=== PATIENT | female | born 1985 | race Caucasian/White ===

== ENCOUNTER 2023-06-16 23:10 | Inpatient (IN) | payer OTHER, SELFPAY ==
[2023-06-16 23:16] VITALS: BP 164/107; PULSE 117; TEMP 37.2; O2SAT 100; BMI 22.8
[2023-06-16 23:45] LABS: Basophils % 0.5 %; Eosinophils # 0.1 10^3/uL (0.0-0.8); Eosinophils % 1.9 %; Hematocrit 44.2 % (36-47); Lymphocytes # 1.3 10^3/uL (0.8-4.8); Lymphocytes % 22.4 %; Mean Corpuscular HGB Conc 33.5 g/dL (30-55); Mean Corpuscular Hemoglobin 30.6 pg (27-33); Mean Corpuscular Volume 91.5 fl (85-98); Mean Platelet Volume 9.1 fL (7.4-10.4); Monocytes # 0.4 10^3/uL (0.2-0.9); Monocytes % 5.9 %; Neutrophils # 4.07 10^3/uL (1.8-7.7); Neutrophils % 69.1 %; Nucleated Red Blood Cells % 0 %; Platelet Count 286 10^3/cmm (157-399); Red Blood Count 4.83 10^6/uL (3.85-5.65); White Blood Count 5.89 10^3/uL (3.29-11.43)
[2023-06-16 23:53] LABS: Add Urine Microscopic? NO; Charge for UA Resulting for Rev
[2023-06-16 23:58] LABS: Bilirubin Urine Neg (Negative); Blood Urine Neg (Negative); Glucose Urine UA Norm (Normal); HCG Qualitative Urine. Negative (Negative); Ketones Urine Negative (Negative); Leukocyte Esterase Urine Negative (Negative); Nitrate Urine Negative (Negative); Protein Urine Neg (Negative); Specific Gravity, Urine 1.005 (1.005-1.030); Urine Appearance Clear (CLEAR); Urine Color Light yellow (Yellow); Urobilinogen Urine Neg (Negative); pH Urine 6 (5-7)
[2023-06-17 00:01] LABS: Alanine Aminotransferase 16 U/L (0-33); Albumin Level 4.7 g/dL (3.5-5.2); Alcohol Level 189 mg/dL (0-10); Alkaline Phosphatase 69 U/L (35-105); Anion Gap 17.6 (5-19); Aspartate Amino Transferase 22 U/L (0-32); Blood Urea Nitrogen 6 mg/dL (6-20); Calcium 9.3 mg/dL (8.5-10.5); Carbon Dioxide 23 mmol/L (22-29); Chloride 105 mmol/L (98-107); Globulin 3.2 g/dL (1.3-4.6); Glomerular Filtration Rate 92.7 mL/min (90-130); Glucose 96 mg/dL (65-115); Osmolality Calculated 291 mOsm/kg (285-295); Potassium 3.6 mmol/L (3.5-5.1); Sodium 142 mmol/L (136-145); Total Bilirubin 0.4 mg/dL (0.15-1.2); Total Protein 7.9 g/dL (6.6-8.7)
[2023-06-17 00:04] LABS: Amphetamines Screen Urine Negative (Negative); Barbiturates Screen Urine Negative (Negative); Benzodiazepines Screen Urine Negative (Negative); Cocaine Screen Urine Negative (Negative); Opiate Screen Urine Negative (Negative); PCP Screen Urine Negative (Negative); THC Screen Urine Positive (Negative)
[2023-06-17 00:04] LABS: Acetaminophen < 5.0 ug/mL (10-30); Salicylate < 0.3 mg/dL (3-10)
--- NOTE | 2023-06-17 00:13 | ED.C_ITS ---
HPI - Psych General: Chief Complaint: Psychiatric Symptoms Stated Complaint: MHE Time Seen by Provider: 06/16/23 23:24 Source: patient and police History of Present Illness: 38-year-old female brought in by law enforcement. They were called to the scene by the patient's family, because she had been making statements about harming himself by jumping off of a roof, evidently because of her family had not been nice to her today, which is her birthday. Prior alcohol consumption was endorsed. She states she has a history of depression, has never been admitted to the hospital for depression or mental illness. Her depression is untreated. She has no known other health problems MD complaint: other Onset (ago): hour(s) Duration: constant History of same: No Relieving factors: none Exacerbating factors: none Context: recent alcohol abuse Associated psychiatric symptoms: depression Associated symptoms: Deny auditory hallucinations or visual hallucinations Review of Systems Const: Denies: fever(s) ENMT: Denies: throat pain Card: Denies: chest pain Resp: Denies: dyspnea GI: Denies: abdominal pain, nausea or vomiting Psych: Denies: visual hallucinations or auditory hallucinations Physical Exam Const: COMMON NORMALS: no acute distress GENERAL APPEARANCE: cooperative; not ill appearing and not frail appearing HENMT: COMMON NORMALS: normocephalic, atraumatic and Normal external nose present HEAD & SCALP: normocephalic and atraumatic FACE & SINUS: normal facial exam and face symmetric NOSE: Normal external nose present Eye: COMMON NORMALS: Equal, round and reactive pupils present and EOMs intact bilaterally PUPIL: Yes Equal, round and reactive pupils present Neck/C-Spine: GENERAL: Yes trachea midline Chest: CHEST: Yes Symmetrical chest wall rise Resp: COMMON NORMALS: normal respiratory effort, No retractions, No use of accessory muscles and clear to auscultation bilaterally AUSCULTATION: clear to auscultation bilaterally Cardio: COMMON NORMALS: regular rate and regular rhythm RATE: regular rate RHYTHM: regular rhythm GI: COMMON NORMALS: Normal to inspection, nondistended, normoactive bowel sounds present Extremity: COMMON NORMALS: no pedal edema Neuro: SANDRA COMA SCALE: document GCS findings Sandra coma scale eye opening: Spontaneous Sandra coma scale verbal response: Orientated Sandra coma scale motor response: [place]bey commands [place] coma scale total score: 15 SENSORY EXAM: Yes extremities (intact) Psych: COMMON NORMALS: speech normal SPEECH: Yes normal speech Skin: COMMON NORMALS: no rashes or lesions noted GENERAL SKIN EXAM: no rashes or lesions noted Course Vital Signs: Vital signs: Vital Signs Temperature 99.0 F 06/16/23 23:16 Pulse Rate 117 H 06/16/23 23:16 Blood Pressure 164/107 06/16/23 23:16 Pulse Oximetry 100 06/16/23 23:16 Oxygen Delivery Me thod Room Air 06/16/23 23:16 MDM - Psych Medical Decision Making 38-year-old female presenting with mild alcohol intoxication, and making suicidal statements. She now denies suicidality, but endorses significant depression and hopelessness. She states that her family threatened to leave her if she did not get help. Laboratory is essentially normal, save an alcohol level of 189, and marijuana positive drug screen. Medically she is stable. I spoke with psychiatry. As she had made suicidal statements prior, we will sign 96-hour paperwork with the deputy's affidavit, although she is coming in willingly. She asks for something to help her sleep, nicotine patch, and ibuprofen for headache. Lab Data 06/16/23 23:35 06/16/23 23:35 Laboratory Results WBC 5.89 10^3/uL (3.29-11.43) 06/16/23 23:35 RBC 4.83 10^6/uL (3.85-5.65) 06/16/23 23:35 Hgb 14.80 g/dL (11.27-16.99) 06/16/23 23:35 Hct 44.2 % (36-47) 06/16/23 23:35 MCV 91.5 fl (85-98) 06/16/23 23:35 MCH 30.6 pg (27-33) 06/16/23 23:35 MCHC 33.5 g/dL (30-55) 06/16/23 23:35 RDW 11.0 % (12.1-15.1) L 06/16/23 23:35 Plt Count 286 10^3/cmm (157-399) 06/16/23 23:35 MPV 9.1 fL (7.4-10.4) 06/16/23 23:35 Neut % (Auto) 69.1 % 06/16/23 23:35 Lymph % (Auto) 22.4 % 06/16/23 23:35 [place] % (Auto) 5.9 % 06/16/23 23:35 Eos % (Auto) 1.9 % 06/16/23 23:35 Baso % (Auto) 0.5 % 06/16/23 23:35 Neut # (Auto) 4.07 10^3/uL (1.8-7.7) 06/16/23 23:35 Lymph # (Auto) 1.3 10^3/uL (0.8-4.8) 06/16/23 23:35 [place] # (Auto) 0.4 10^3/uL (0.2-0.9) 06/16/23 23:35 Eos # (Auto) 0.1 10^3/uL (0.0-0.8) 06/16/23 23:35 Baso # (Auto) 0.0 10^3/uL (0.0-0.1) 06/16/23 23:35 Nucleated RBC % (auto) 0 % 06/16/23 23:35 Nucleated RBCs # 0.0 /100WBC 06/16/23 23:35 Sodium 142 mmol/L (136-145) 06/16/23 23:35 Potassium 3.6 mmol/L (3.5-5.1) 06/16/23 23:35 Chloride 105 mmol/L (98-107) 06/16/23 23:35 Carbon Dioxide 23 mmol/L (22-29) 06/16/23 23:35 Anion Gap 17.6 (5-19) 06/16/23 23:35 BUN 6 mg/dL (6-20) 06/16/23 23:35 Creatinine 0.7 mg/dL (0.5-0.9) 06/16/23 23:35 GFR Calculation 92.7 mL/min (90-130) 06/16/23 23:35 Glucose 96 mg/dL (65-115) 06/16/23 23:35 Calculated Osmolality 291 mOsm/kg (285-295) 06/16/23 23:35 Calcium 9.3 mg/dL (8.5-10.5) 06/16/23 23:35 Total Bilirubin 0.4 mg/dL (0.15-1.2) 06/16/23 23:35 AST 22 U/L (0-32) 06/16/23 23:35 ALT 16 U/L (0-33) 06/16/23 23:35 Alkaline Phosphatase 69 U/L (35-105) 06/16/23 23:35 Total Protein 7.9 g/dL (6.6-8.7) 06/16/23 23:35 Albumin 4.7 g/dL (3.5-5.2) 06/16/23 23:35 Globulin 3.2 g/dL (1.3-4.6) 06/16/23 23:35 HCG, Qual Negative (Negative) 06/16/23 23:48 Urine Color Light yellow (Yellow) 06/16/23 23:48 Urine Appearance Clear (CLEAR) 06/16/23 23:48 Urine pH 6 (5-7) 06/16/23 23:48 Ur Specific [place] 1.005 (1.005-1.030) 06/16/23 23:48 Urine Protein Neg (Negative) 06/16/23 23:48 Urine Glucose (UA) Norm (Normal) 06/16/23 23:48 Urine Ketones Negative (Negative) 06/16/23 23:48 Urine Blood Neg (Negative) 06/16/23 23:48 Urine Nitrate Negative (Negative) 06/16/23 23:48 Urine Bilirubin Neg (Negative) 06/16/23 23:48 Urine Urobilinogen Neg mg/dL (Negative) 06/16/23 23:48 Ur Leukocyte Esterase Negative (Negative) 06/16/23 23:48 Salicylates < 0.3 mg/dL (3-10) L 06/16/23 23:35 Urine Opiates Screen Negative ng/mL (Negative) 06/16/23 23:48 Acetaminophen < 5.0 ug/mL (10-30) L 06/16/23 23:35 Ur Barbiturates Screen Negative ng/mL (Negative) 06/16/23 23:48 Ur Phencyclidine Scrn Negative ng/mL (Negative) 06/16/23 23:48 Ur Amphetamines Screen Negative ng/mL (Negative) 06/16/23 23:48 U Benzodiazepines Scrn Negative ng/mL (Negative) 06/16/23 23:48 Urine Cocaine Screen Negative ng/mL (Negative) 06/16/23 23:48 U Marijuana (THC) Screen Positive ng/mL (Negative) H 06/16/23 23:48 Ethyl Alcohol 189 mg/dL (0-10) H 06/16/23 23:35 Discharge Plan Discharge Patient Disposition: Admitted As Inpatient Clinical Impression: Depression with suicidal ideation Condition: Stable Coding Level of Care Code ED Game Tester for Jeanette Kemp
--- NOTE | 2023-06-17 01:00 | PC.NURSE ---
pt was upset when she heard another pt state 'you cant hold me here against my will'. this pt then states 'if i want to kill myself then thats my business'. this video game script writer tried to de-esclate pt and told her were were trying to help her and she refused to respond. pt in stable condition, aware and sitter is at bedside.
[2023-06-17 01:01] VITALS: RESP 17
--- NOTE | 2023-06-17 01:15 | PC.NURSE ---
Patient requesting nicotine gum or something because she smokes. Dr Saleh gave verbal for a patch. Order placed and offered to the patient. Pt refused and states, I said I want to gum those patches don't work . PT then threw her cup of ice water in floor.
[2023-06-17] MEDS: ibuprofen 600 mg Tablet PO (01:42)
[2023-06-17] MEDS: zolpidem 5 mg Tablet PO (01:42)
[2023-06-17] MEDS: nicotine 21 mg Patch 1 PATCH TRANSDERMA (01:42)
--- NOTE | 2023-06-17 02:38 | PC.NURSE ---
96hr hold placed and rights read to patient with provided copy by design supervisor, Marilee NAZARIO. Security in room at time.
[2023-06-17 05:33] VITALS: BP 160/110; PULSE 101; RESP 16; O2SAT 97
--- NOTE | 2023-06-17 05:37 | PC.NURSE ---
BP elevated to 160/110, did retake and still elevated. Dr notified and per verbal order dr albrecht can give Amlodipine 10mg po. rbvo
[2023-06-17] MEDS: amlodipine 10 mg Tablet PO (05:40)
[2023-06-17 09:52] VITALS: BP 165/106; PULSE 111; O2SAT 98
[2023-06-17] MEDS: hyDROXYzine 25 mg Capsule 50 MG PO (20:16)
[2023-06-17] MEDS: trazodone 50 mg Tablet PO (20:16)
[2023-06-17 21:04] VITALS: BP 162/88; PULSE 95; RESP 20; TEMP 36.9; O2SAT 98
--- NOTE | 2023-06-17 23:06 | PC.NURSE ---
Pt arrived to NPU w/security and RN at side. Pt was highly anxious, but was cooperative w/admission assessment.
[2023-06-18] MEDS: OLANZapine 5 mg ODT PO (03:26)
[2023-06-18 03:27] VITALS: BP 139/106; PULSE 103; RESP 22
--- NOTE | 2023-06-18 03:28 | PC.NURSE ---
Pt came to desk complaining of chest pain, VS p-103, r-22, BP-139/106 using a wrist cuff. Pt states she has dizziness at times at home. Pt given Zyprexa Zydis 5mg SL. Pt stated when she had this feeling before, she worried she was having a stroke. Pt voiced relief of chest pain shortly after medication was given, pt also given 16oz of ice water to sip on though out the rest of this night. Will continue to monitor pt.
[2023-06-18 06:00] VITALS: BP 144/92; PULSE 79; RESP 15; O2SAT 97
[2023-06-18] MEDS: nicotine 2 mg Gum BUCCAL ×4 (08:48→20:00)
--- NOTE | 2023-06-18 11:13 | ECG_ITS ---
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 Measurements Intervals [place] Rate: 105 P: 54 IN: 146 QRS: 45 QRSD: 74 T: 62 QT: 285 QTc: 378 Interpretive Statements SINUS TACHYCARDIA NONSPECIFIC T-WAVE ABNORMALITY ABNORMAL RHYTHM ECG No previous ECG available for comparison Electronically Signed On 06-19-2023 0:03:31 CDT by Lauren Amos M.D. [id number]
[2023-06-18] MEDS: LORazepam 2 mg Tablet PO ×2 (11:32→15:44)
[2023-06-18 14:00] VITALS: BP 131/99; PULSE 105; RESP 16; O2SAT 98
--- NOTE | 2023-06-18 15:49 | PC.NURSE ---
PRN MED PT GIVEN 2MG ATIVAN, PER CIWA SCORE OF 10, WILL CONTINUE TO MONITOR.
--- NOTE | 2023-06-18 17:03 | W.PM.NPUH&PS ---
Providers/Chief Complaint Admitting Physician: José Sloan MD Chief Complaint: MHE HPI NPU History of Present Illness Herbert Davidson is a 38 year old female who reports no previous inpatient psychiatric treatment who had been brought in by law enforcement after the patient had apparently locked herself up in a room that apparently had had a gun and it while making statements about wanting to jump off of a roof. The patient was admitted to the neuropsychiatric unit for further evaluation and treatment. She had reported that she had consumed 8 beers and states that she has no recollection about making a statement to hurt herself. She had stated that she had been consuming alcohol on a regular basis for the past several months although she had stated that she had tried to cut down. She reports that her family members had threatened to abandon her if she did not get some help. She had reported that she was extremely upset that her family had let her down by not even wishing her happy birthday on the day of admission. She had reported that she has been depressed since she was a child with general reports of feeling depressed more days than not. She reports having sleep continuity disruption and reports that she has been crying more frequently. She reports not feeling rested when awakening. She reports that she has been feeling more hopeless. She reports that she sometimes acts without thinking and admits to having overdosed on Tylenol several months ago without informing anyone of her actions. Patient does report feeling more tired and endorses a lack of motivation. She denied any history of sekou. She does report that she is an introvert and struggles with being around lots of people. She reports that she has struggles with speaking or being in front of large crowds. She reports that she often avoids being around other people as she reports being the center of attention. She reports that she chronically worries and states that she has been struggling to manage her worry for much of her life. She denies any psychotic symptoms. Inpatient psychiatric history: None Outpatient psychiatric history: None Allergies: No known drug allergies Surgeries: Ectopic Medical history: None reported Current medications: None Drug and alcohol history: She reports daily drinking for several years. She reports no history of drug or alcohol treatment. She had minimized any history of acute alcohol withdrawal symptoms in the past. She had endorsed occasional marijuana use and was positive for marijuana and positive for alcohol with a blood alcohol level of 189 on admission. Family psychiatric history: Alcohol abuse in the paternal side of the family. Social history: She reports that she was born in [place] and raised by her mother. She states that her parents had split up when she was 18 months old. She has 1 full sister. She had graduated from high school and had gone to college but was unable to complete her degree as she had hopes of working in the dental field. 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 She lives in [place], [place] with her and 6-year-old and 14-year-old children. She had graduated from [employer] and reported having few friends. She did not endorse any history of significant trauma during her childhood. She has no legal history or any history. Meds NPU Home Medications Medication Instructions Recorded Confirmed Last Taken Type No Known Home Medications 06/17/23 06/17/23 Unknown History Allergies Allergy/AdvReac Type Severity Reaction Status Date / Time No Known Allergies Allergy Verified 06/16/23 23:33 Mental Status Exam MSE Comments: Is a casually dressed white female who appeared her stated age with fleeting eye contact and normal gait. There was no evidence of any abnormal involuntary motor movements tics or tremors appreciated. There was evidence of moderate psychomotor retardation. She was initially guarded during the interview but appeared to be more forthcoming later. Her speech was normal in regards to rate rhythm and prosody. Her mood was described as depressed. Her affect was restricted in range and mood-congruent. She denied any suicidal ideation at this time and minimized any homicidal ideation. She had endorsed a sense of hopelessness. She was tearful throughout much of the interview. Her attention span appeared fair. Her recent and remote memory were grossly intact. She was alert and oriented to person place and time. red limited. There was no clear evidence of delusional thinking. Her thought process was linear logical and goal-directed. She did not appear to be responding to internal stimuli. Her insight is poor. Her judgment is poor. Her impulse control appea Vitals/I&O/Wt Last Vital Signs Temp 98.5 F 06/17/23 21:04 Pulse 105 H 06/18/23 14:00 Resp 16 06/18/23 14:00 BP 131/99 06/18/23 14:00 Pulse Ox 98 06/18/23 14:00 O2 Del Method Room Air 06/18/23 14:00 Weight last 48 hrs Weight 56.699 kg Data NPU 06/16/23 23:35 06/16/23 23:35 A&P Assessment and plan (1) Depression with suicidal ideation: (2) Major depressive disorder: (3) Generalized anxiety disorder: Plan 1. Encourage individual, group and milieu therapy. ?2.Recommend sober living treatment at the highest level of care to which the patient is willing to commit. 3.Continue q-15 minute checks for safety.? 4. CIWA protocol 5. Initiate zoloft 25mg in am to target depression and anxiety. Involuntary Hold Information 96 Hour Hold: 96 Hour Involuntary Admission: Yes 96 Hour Hold Ending Date: 06/21/23 96 Hour Hold Ending Time: 01:58 Attestations NPU Medical Necessity Statement*: Inpatient hospitalization is medically necessary and deemed to be the clinically appropriate intervention at this time. We will monitor and initiate medications while making changes as indicated. Patient will be in the hospital for over 2 midnights. The patient's likely length of stay is 3 to 5 days. Coding Level of Care Code Acute Code for Chg Fwd Diagnoses Depression with suicidal ideation F32.A; R45.851 Major depressive disorder F32.9 Generalized anxiety disorder F41.1
[2023-06-18] MEDS: sertraline 50 mg Tablet 25 MG PO (17:10)
[2023-06-18] MEDS: hyDROXYzine 25 mg Capsule 50 MG PO (19:58)
[2023-06-18] MEDS: trazodone 50 mg Tablet PO (19:58)
[2023-06-18 22:00] VITALS: RESP 16; TEMP 36.1
[2023-06-19] MEDS: OLANZapine 5 mg ODT PO (01:55)
[2023-06-19 06:00] VITALS: BP 120/64; PULSE 87; RESP 16; TEMP 36.6; O2SAT 97
[2023-06-19] MEDS: thiamine 100 mg Tablet PO (08:50)
[2023-06-19] MEDS: folic acid 1 mg Tablet PO (08:50)
[2023-06-19] MEDS: sertraline 50 mg Tablet 25 MG PO (08:50)
[2023-06-19] MEDS: nicotine 2 mg Gum BUCCAL ×6 (08:54→20:33)
[2023-06-19] MEDS: multivitamin therapeutic Tablet 1 TAB PO (09:58)
[2023-06-19] MEDS: hyDROXYzine 25 mg Capsule 50 MG PO ×2 (11:27→19:24)
[2023-06-19 14:00] VITALS: BP 136/91; PULSE 105; RESP 16; TEMP 36.4; O2SAT 97
--- NOTE | 2023-06-19 15:06 | W.PM.NPUPNS ---
Subjective NPU Subjective: Patient is a 38-year-old white female admitted with major depressive disorder ,generalized anxiety disorder and alcohol abuse with suicidal ideation. Patient had continued to report depressed mood. She had reported struggling with discussing her problems with anyone else. She had reported continued thoughts of being abandoned by her family. She had reported extreme anxiety in public places and reported feeling as if she was being placed as a center of attention when she was out in public. She had reported that her anxiety and depression have been present since childhood and had led to her increased problems with alcohol. She had reported no past history of alcohol withdrawal symptoms. She had reported anhedonia with some difficulties with falling asleep and staying asleep. The patient had continued to isolate herself on the milieu. Mental Status Exam MSE Comments: Is a casually dressed white female who appeared her stated age with fleeting eye contact and normal gait with clear ruddiness in complexion. There was no evidence of any abnormal involuntary motor movements tics or tremors appreciated. There was evidence of moderate psychomotor retardation. She was less guarded on interview today. Her speech was normal in regards to rate rhythm and prosody. Her mood was described as depressed. Her affect was tearful and restricted in range. She denied any suicidal ideation at this time and minimized any homicidal ideation. She remained tearful throughout much of the interview. Her attention span appeared fair. Her recent and remote memory were grossly intact. She was alert and oriented to person, place and time. There was no clear evidence of delusional thinking. Her thought process was linear, logical and goal-directed. She did not appear to be responding to internal stimuli. Her insight is poor. Her judgment is poor. Her impulse control appea Vitals/I&O/Wt Last Vital Signs Temp 97.9 F 06/19/23 06:00 Pulse 87 06/19/23 06:00 Resp 16 06/19/23 06:00 BP 120/64 06/19/23 06:00 Pulse Ox 97 06/19/23 06:00 O2 Del Method Room Air 06/19/23 06:00 Data NPU 06/16/23 23:35 06/16/23 23:35 A&P Assessment and plan (1) Depression with suicidal ideation: (2) Major depressive disorder: (3) Generalized anxiety disorder: (4) Alcohol abuse: Plan 1. Encourage individual, group and milieu therapy. ?2.Recommend sober living treatment at the highest level of care to which the patient is willing to commit. 3.Continue q-15 minute checks for safety.? 4. CIWA protocol 5. increase Zoloft to 50mg in am to target depression and anxiety. Add naltrexone to target alcohol cravings. Involuntary Hold Information 96 Hour Hold: 96 Hour Involuntary Admission: Yes 96 Hour Hold Ending Date: 06/21/23 96 Hour Hold Ending Time: 01:58 Attestations NPU Medical Necessity Statement*: Inpatient hospitalization is medically necessary and deemed to be the clinically appropriate intervention at this time. We will monitor and initiate medications while making changes as indicated. \ The patient's likely length of stay is 3-4 days. Coding Level of Care Code Acute Code for Chg Fwd Diagnoses Depression with suicidal ideation F32.A; R45.851 Major depressive disorder F32.9 Generalized anxiety disorder F41.1 Alcohol abuse F10.10
[2023-06-19] MEDS: naltrexone hcl 50 mg Tablet PO (15:34)
--- NOTE | 2023-06-19 18:06 | ECG_ITS ---
[facility] Test Date: 2023-06-19 Pat Name: Herbert Davidson Department: Room: 128 Gender: Female Supervisor [employer]: : 1985 Requested By: José Sloan Order Number: [id number] Alisson MD: Tulio Kramer M.D. Measurements Intervals [place] Rate: 93 P: 56 CT: 154 QRS: 62 QRSD: 74 T: 65 QT: 362 QTc: 452 Interpretive Statements SINUS RHYTHM NONSPECIFIC T-WAVE ABNORMALITY Compared to ECG 06/18/2023 13:28:35 Sinus tachycardia no longer present T-wave abnormality still present Electronically Signed On 06-20-2023 6:48:46 CDT by Tulio Kramer M.D. [id number]
[2023-06-19 19:24] LABS: Troponin T (5th) Once 6 ng/L (0-10)
[2023-06-19 19:28] LABS: Alanine Aminotransferase 12 U/L (0-33); Albumin Level 4.1 g/dL (3.5-5.2); Alkaline Phosphatase 56 U/L (35-105); Anion Gap 16.8 (5-19); Aspartate Amino Transferase 17 U/L (0-32); Blood Urea Nitrogen 12 mg/dL (6-20); Calcium 9.3 mg/dL (8.5-10.5); Carbon Dioxide 25 mmol/L (22-29); Chloride 102 mmol/L (98-107); Globulin 2.9 g/dL (1.3-4.6); Glomerular Filtration Rate 92.7 mL/min (90-130); Glucose 127 mg/dL (65-115); Osmolality Calculated 291 mOsm/kg (285-295); Potassium 3.8 mmol/L (3.5-5.1); Sodium 140 mmol/L (136-145); Total Bilirubin 0.3 mg/dL (0.15-1.2)
[2023-06-19 20:03] VITALS: BP 145/101; PULSE 90; RESP 18; TEMP 36.8; O2SAT 97
[2023-06-19] MEDS: trazodone 50 mg Tablet PO (20:44)
[2023-06-20 06:00] VITALS: BP 131/86; PULSE 90; RESP 16; TEMP 36.9; O2SAT 97
[2023-06-20] MEDS: nicotine 2 mg Gum BUCCAL ×3 (06:53→12:38)
[2023-06-20] MEDS: thiamine 100 mg Tablet PO (09:17)
[2023-06-20] MEDS: folic acid 1 mg Tablet PO (09:17)
[2023-06-20] MEDS: multivitamin therapeutic Tablet 1 TAB PO (09:17)
[2023-06-20] MEDS: naltrexone hcl 50 mg Tablet PO (09:17)
[2023-06-20] MEDS: sertraline 50 mg Tablet PO (09:17)
[2023-06-20] MEDS: hyDROXYzine 25 mg Capsule 50 MG PO (12:37)
[2023-06-20 13:34] VITALS: BP 141/97; PULSE 87; RESP 16; TEMP 36.7; O2SAT 97
--- NOTE | 2023-06-20 14:18 | W.PM.NPUDCS ---
Diagnoses at Discharge Discharge Diagnosis (1) Depression with suicidal ideation: Status: Acute (2) Major depressive disorder: Status: Acute (3) Generalized anxiety disorder: Status: Acute (4) Alcohol abuse: Status: Acute Reason for Visit Reason for Visit: MHE Brief History: History of Present Illness Herbert Davidson is a 38 year old female who reports no previous inpatient psychiatric treatment who had been brought in by law enforcement after the patient had apparently locked herself up in a room that apparently had had a gun and it while making statements about wanting to jump off of a roof.? The patient was admitted to the neuropsychiatric unit for further evaluation and treatment.? She had reported that she had consumed 8 beers and states that she has no recollection about making a statement to hurt herself.? She had stated that she had been consuming alcohol on a regular basis for the past several months although she had stated that she had tried to cut down.? She reports that her family members had threatened to abandon her if she did not get some help.? She had reported that she was extremely upset that her family had let her down by not even wishing her happy birthday on the day of admission.? She had reported that she has been depressed since she was a child with general reports of feeling depressed more days than not.? She reports having sleep continuity disruption and reports that she has been crying more frequently.? She reports not feeling rested when awakening.? She reports that she has been feeling more hopeless.? She reports that she sometimes acts without thinking and admits to having overdosed on Tylenol several months ago without informing anyone of her actions.? Patient does report feeling more tired and endorses a lack of motivation.? She denied any history of sekou.? She does report that she is an introvert and struggles with being around lots of people.? She reports that she has struggles with speaking or being in front of large crowds.? She reports that she often avoids being around other people as she reports being the center of attention.? She reports that she chronically worries and states that she has been struggling to manage her worry for much of her life.? She denies any psychotic symptoms. Inpatient psychiatric history: None Outpatient psychiatric history: None Allergies: No known drug allergies Surgeries: Ectopic Medical history: None reported Current medications: None Drug and alcohol history: She reports daily drinking for several years.? She reports no history of drug or alcohol treatment.? She had minimized any history of acute alcohol withdrawal symptoms in the past.? She had endorsed occasional marijuana use and was positive for marijuana and positive for alcohol with a blood alcohol level of 189 on admission. Family psychiatric history: Alcohol abuse in the paternal side of the family. Social history: She reports that she was born in [place] and raised by her mother.? She states that her parents had split up when she was 18 months old.? She has 1 full sister.? She had graduated from high school and had gone to college but was unable to complete her degree as she had hopes of working in the dental field.? 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 She lives in [place], [place] with her and 6-year-old and 14-year-old children.? She had graduated from [employer] and reported having few friends.? She did not endorse any history of significant trauma during her childhood.? She has no legal history or any history. Hospital Course Hospital Course During the hospitalization, the patient had routine laboratory studies which were within normal limits except for a few outliers.? Additionally, there was a general medical evaluation which was also within normal limits and revealed no new acute processes.? At the time of discharge, lethality was denied and psychosis was resolving.? Mood and anxiety were well managed.? The patient endorsed a plan to avoid all drugs of abuse and follow up with the aftercare recommendations of the treatment team.? The patient was evaluated and deemed to be absent credible lethality and had achieved the maximum benefit from an inpatient hospitalization, and so was discharged.Zoloft was initiated and titrated to 100mg daily without any side effects. She reported desire to consider psychotherapy and medication management to target her depression and anxiety. Involuntary Hold Information 96 Hour Hold: 96 Hour Involuntary Admission: Yes 96 Hour Hold Ending Date: 06/21/23 96 Hour Hold Ending Time: 01:58 Mental Status Exam MSE Comments: Is a casually dressed white female who appeared her stated age with fleeting eye contact and normal gait with clear ruddiness in complexion. There was no evidence of any abnormal involuntary motor movements tics or tremors appreciated. There was evidence of mild psychomotor retardation. Her speech was normal in regards to rate, rhythm and prosody. Her mood was described as better. Her affect was anxious. She denied any suicidal ideation at this time and minimized any homicidal ideation. She was not tearful at discharge. Her attention span appeared fair. Her recent and remote memory were grossly intact. She was alert and oriented to person, place and time. There was no clear evidence of delusional thinking. Her thought process was linear, logical and goal-directed. She did not appear to be responding to internal stimuli. Her insight is improving. Her judgment is fair. Her impulse control appeared fair. Discharge Data Studies Completed and Pending: Laboratory Results WBC 5.89 10^3/uL (3.2 9-11.43) 06/16/23 23:35 RBC 4.83 10^6/uL (3.8 5-5.65) 06/16/23 23:35 Hgb 14.80 g/dL (11.27 -16.99) 06/16/23 23:35 Hct 44.2 % (36-47) 06/16/23 23:35 MCV 91.5 fl (85-98) 06/16/23 23:35 MCH 30.6 pg (27-33) 06/16/23 23:35 MCHC 33.5 g/dL (30-55) 06/16/23 23:35 RDW 11.0 % (12.1-15.1 ) L 06/16/23 23:35 Plt Count 286 10^3/cmm (157 -399) 06/16/23 23:35 MPV 9.1 fL (7.4-10.4) 06/16/23 23:35 Neut % (Auto) 69.1 % 06/16/23 23:35 Lymph % (Auto) 22.4 % 06/16/23 23:35 [place] % (Auto) 5.9 % 06/16/23 23:35 Eos % (Auto) 1.9 % 06/16/23 23:35 Baso % (Auto) 0.5 % 06/16/23 23:35 Neut # (Auto) 4.07 10^3/uL (1.8 -7.7) 06/16/23 23:35 Lymph # (Auto) 1.3 10^3/uL (0.8- 4.8) 06/16/23 23:35 [place] # (Auto) 0.4 10^3/uL (0.2- 0.9) 06/16/23 23:35 Eos # (Auto) 0.1 10^3/uL (0.0- 0.8) 06/16/23 23:35 Baso # (Auto) 0.0 10^3/uL (0.0- 0.1) 06/16/23 23:35 Nucleated RBC % (a uto) 0 % 06/16/23 23:35 Nucleated RBCs # 0.0 /100WBC 06/16/23 23:35 Sodium 140 mmol/L (136-1 45) 06/19/23 18:30 Potassium 3.8 mmol/L (3.5-5 .1) 06/19/23 18:30 Chloride 102 mmol/L (98-10 7) 06/19/23 18:30 Carbon Dioxide 25 mmol/L (22-29) 06/19/23 18:30 Anion Gap 16.8 (5-19) 06/19/23 18:30 BUN 12 mg/dL (6-20) 06/19/23 18:30 Creatinine 0.7 mg/dL (0.5-0. 9) 06/19/23 18:30 GFR Calculation 92.7 mL/min (90-1 30) 06/19/23 18:30 Glucose 127 mg/dL (65-115 ) H 06/19/23 18:30 Calculated Osmolal ity 291 mOsm/kg (285- 295) 06/19/23 18:30 Calcium 9.3 mg/dL (8.5-10 .5) 06/19/23 18:30 Total Bilirubin 0.3 mg/dL (0.15-1 .2) 06/19/23 18:30 AST 17 U/L (0-32) 06/19/23 18:30 ALT 12 U/L (0-33) 06/19/23 18:30 Alkaline Phosphata se 56 U/L (35-105) 06/19/23 18:30 Troponin T Gen 5 n g/L 6 ng/L (0-10) 06/19/23 18:30 Total Protein 7.0 g/dL (6.6-8.7 ) 06/19/23 18:30 Albumin 4.1 g/dL (3.5-5.2 ) 06/19/23 18:30 Globulin 2.9 g/dL (1.3-4.6 ) 06/19/23 18:30 HCG, Qual Negative (Negati ve) 06/16/23 23:48 Urine Color Light yellow (Ye llow) 06/16/23 23:48 Urine Appearance Clear (CLEAR) 06/16/23 23:48 Urine pH 6 (5-7) 06/16/23 23:48 Ur Specific Gravit y 1.005 (1.005-1.0 30) 06/16/23 23:48 Urine Protein Neg (Negative) 06/16/23 23:48 Urine Glucose (UA) Norm (Normal) 06/16/23 23:48 Urine Ketones Negative (Negati ve) 06/16/23 23:48 Urine Blood Neg (Negative) 06/16/23 23:48 Urine Nitrate Negative (Negati ve) 06/16/23 23:48 Urine Bilirubin Neg (Negative) 06/16/23 23:48 Urine Urobilinogen Neg mg/dL (Negati ve) 06/16/23 23:48 Ur Leukocyte Luisa ase Negative (Negati ve) 06/16/23 23:48 Salicylates < 0.3 mg/dL (3-10 ) L 06/16/23 23:35 Urine Opiates Scre en Negative ng/mL (N egative) 06/16/23 23:48 Acetaminophen < 5.0 ug/mL (10-3 0) L 06/16/23 23:35 Ur Barbiturates Sc reen Negative ng/mL (N egative) 06/16/23 23:48 Ur Phencyclidine S crn Negative ng/mL (N egative) 06/16/23 23:48 Ur Amphetamines Sc reen Negative ng/mL (N egative) 06/16/23 23:48 U Benzodiazepines Scrn Negative ng/mL (N egative) 06/16/23 23:48 Urine Cocaine Scre en Negative ng/mL (N egative) 06/16/23 23:48 U Marijuana (THC) Screen Positive ng/mL (N egative) H 06/16/23 23:48 Ethyl Alcohol 189 mg/dL (0-10) H 06/16/23 23:35 Vitals: Last Vital Signs Temp 98.1 F 06/20/23 13:34 Pulse 87 06/20/23 13:34 Resp 16 06/20/23 13:34 BP 141/97 06/20/23 13:34 Pulse Ox 97 06/20/23 13:34 O2 Del Method Room Air 06/20/23 06:00 Discharge Plan Discharge Patient Disposition: Home Condition: Stable Prescriptions: No Action No Known Home Medications Discharge Orders: Discharge Order (Routine); Ordered 06/20/23 Ordered By: José Sloan Referrals: [facility] [Other] - 06/26/23 12:40 pm (Appointment is with Yani Rawls NP) [facility] [Other] - 06/25/23 12:30 pm (Initial appointment 06/25/23 @ 12:30 at [facility] [Other] (You have been referred.) Discharge Diet: Usual diet Discharge Activity: Resume usual activity Patient Instructions: Opioid Safety Discharge Attestations NPU Time Spent in Discharge Care*: less than 30 min Specific Discharge Activities: Specific discharge activities: educating patient and educating and/or supporting family/caregiver Coding Level of Care Code Acute [facility] [place] note Diagnoses Depression with suicidal ideation F32.A; R45.851 Major depressive disorder F32.9 Generalized anxiety disorder F41.1 Alcohol abuse F10.10
[2023-06-20 14:29] VITALS: BP 141/97; PULSE 87; RESP 16; TEMP 36.7; O2SAT 97
--- NOTE | 2023-06-20 15:32 | PC.NURSE ---
written discharge instructions discussed and left with patient and her . pt stated understanding and compliance. pt recieved RX medication delivered from [facility] pharmacy.
== END 2023-06-20 15:33 | disposition home or self-care (01) | DRG 881 ==
LOC: ER 06-17 08:37 → ER IP 06-17 15:34 → NP 06-18 06:19
PROVIDERS: Admitting Provider Psychiatry & Neurology Psychiatry; Emergency Provider Emergency Medicine; Visit Provider Psychiatry & Neurology Psychiatry
DX: F32.9 Major depressive disorder, single episode, unspecified (principal); R45.851 Suicidal ideations; F10.139 Alcohol abuse with withdrawal, unspecified; F41.1 Generalized anxiety disorder; Y90.6 Blood alcohol level of 120-199 mg/100 ml; Z81.1 Family history of alcohol abuse and dependence
CPT/HCPCS: 36415; 80053; 80306; 80307; 81003; 81025; 84484; 85025; 93005; 97150; 97165; 99238; 99285